=== PATIENT | male | born 1955 | race Native Hawaiian/Other Pacific Islander ===

== ENCOUNTER 2016-08-18 13:03 | Emergency (ER) | payer OTHER ==
[~2016-08-18] VITALS: Ht 165.1 cm; Wt 68.0 kg
[2016-08-18 14:50] LABS: PLATELET COUNT 279 K/uL (142-355)
[2016-08-18 14:58] LABS: POTASSIUM 3.3 mmol/L (3.6-5.2); SODIUM 138 mmol/L (136-145)
[2016-08-18 15:33] VITALS: BP 126/71; TEMP 98.2
== END 2016-08-18 15:46 | disposition home or self-care (01) ==
LOC: ED 13:03
PROVIDERS: Family Medicine
DX: S06.0X9A Concussion with loss of consciousness of unspecified duration, initial encounter (principal); S00.83XA Contusion of other part of head, initial encounter; R56.9 Unspecified convulsions; S01.552A Open bite of oral cavity, initial encounter; W22.09XA Striking against other stationary object, initial encounter; Y93.55 Activity, bike riding; Y92.098 Other place in other non-institutional residence as the place of occurrence of the external cause
CPT/HCPCS: 80053; 80307; 80320; 81000; 85027; 90715; 99283; G0479

== ENCOUNTER → 2017-01-19 20:04 | Outpatient (CLI) | payer OTHER | END | disposition short-term general hospital (02) | LOC: AMB 20:04 | DX: S01.112A Laceration without foreign body of left eyelid and periocular area, initial encounter (principal); S60.511A Abrasion of right hand, initial encounter; V19.88XA Pedal cyclist (driver) (passenger) injured in other specified transport accidents, initial encounter; Y92.414 Local residential or business street as the place of occurrence of the external cause | CPT/HCPCS: A0425; A0427 ==

== ENCOUNTER 2017-01-19 20:17 | Emergency (ER) | payer OTHER ==
[~2017-01-19] VITALS: Ht 175.3 cm; Wt 65.8 kg
[2017-01-19 21:45] VITALS: BP 142/93; TEMP 98.3
== END 2017-01-19 22:00 | disposition home or self-care (01) ==
LOC: ED 20:17
PROC: 0HQ1XZZ Repair Face Skin, External Approach (ICD-10-PCS; principal; 2017-01-19)
DX: S80.01XA Contusion of right knee, initial encounter (principal); S40.012A Contusion of left shoulder, initial encounter; S01.112A Laceration without foreign body of left eyelid and periocular area, initial encounter; S60.311A Abrasion of right thumb, initial encounter; F10.10 Alcohol abuse, uncomplicated; V19.3XXA Pedal cyclist (driver) (passenger) injured in unspecified nontraffic accident, initial encounter; Y93.55 Activity, bike riding; Y92.488 Other paved roadways as the place of occurrence of the external cause
CPT/HCPCS: 99283

== ENCOUNTER 2017-05-09 11:55 | Emergency (ER) | payer OTHER ==
[~2017-05-09] VITALS: Ht 167.6 cm; Wt 63.5 kg
[2017-05-09 12:44] VITALS: BP 130/60; TEMP 98.4
== END 2017-05-09 12:51 | disposition home or self-care (01) ==
LOC: ED 11:55
DX: J06.9 Acute upper respiratory infection, unspecified (principal); B34.9 Viral infection, unspecified
CPT/HCPCS: 99282

== ENCOUNTER 2017-10-14 14:24 | Outpatient (CLI) | payer OTHER | END 2017-10-14 14:31 | disposition short-term general hospital (02) | LOC: AMB 14:24 | DX: S00.12XA Contusion of left eyelid and periocular area, initial encounter (principal); V19.3XXA Pedal cyclist (driver) (passenger) injured in unspecified nontraffic accident, initial encounter; Y93.55 Activity, bike riding; Y92.89 Other specified places as the place of occurrence of the external cause; F10.129 Alcohol abuse with intoxication, unspecified | CPT/HCPCS: A0425; A0427 ==

== ENCOUNTER 2017-10-14 14:40 | Observation (INO) | payer OTHER ==
[~2017-10-14] VITALS: Ht 167.6 cm; Wt 62.4 kg
[2017-10-14 14:35] VITALS: BP 124/75; TEMP 98.1
[2017-10-14 15:00] VITALS: BP 111/58
[2017-10-14 15:08] LABS: PLATELET COUNT 286 K/uL (142-355)
[2017-10-14 15:18] LABS: POTASSIUM 3.8 mmol/L (3.6-5.2)
[2017-10-14 16:00] VITALS: BP 100/57
[2017-10-14 17:54] VITALS: BP 109/54; TEMP 97.8; Ht 167.6 cm; Wt 62.4 kg
[2017-10-14 20:00] VITALS: BP 93/58; TEMP 98.3
[2017-10-15] VITALS: BP 100/56; TEMP 98.4
[2017-10-15 03:56] VITALS: BP 108/64; TEMP 98.7
[2017-10-15 08:03] VITALS: BP 103/59; TEMP 98.6
== END 2017-10-15 11:00 | disposition home or self-care (01) ==
LOC: ED 14:40 → MED/SURG 16:10
DX: S01.112A Laceration without foreign body of left eyelid and periocular area, initial encounter (principal); V19.3XXA Pedal cyclist (driver) (passenger) injured in unspecified nontraffic accident, initial encounter; Y93.89 Activity, other specified; Y92.89 Other specified places as the place of occurrence of the external cause; S00.81XA Abrasion of other part of head, initial encounter; G40.802 Other epilepsy, not intractable, without status epilepticus; F10.129 Alcohol abuse with intoxication, unspecified; Y90.8 Blood alcohol level of 240 mg/100 ml or more
CPT/HCPCS: 36415; 80053; 80307; 80320; 81000; 82150; 83690; 84484; 85027; 93005; 96360; 96366; 96367; 96372; 96374; 99220; 99284; G0378; J1165; J1650; J3411; J3490; J7120

== ENCOUNTER 2017-11-18 20:11 | Outpatient (CLI) | payer OTHER | END 2017-11-18 20:16 | disposition short-term general hospital (02) | LOC: AMB 20:11 | DX: F10.129 Alcohol abuse with intoxication, unspecified (principal) | CPT/HCPCS: A0425; A0427 ==

== ENCOUNTER 2017-11-18 20:23 | Emergency (ER) | payer OTHER ==
[~2017-11-18] VITALS: Ht 167.6 cm; Wt 62.1 kg
[2017-11-18 20:56] LABS: PLATELET COUNT 297 K/uL (142-355)
[2017-11-18 21:06] LABS: POTASSIUM 3.7 mmol/L (3.6-5.2)
[2017-11-18 22:46] VITALS: BP 118/68; TEMP 98.1
== END 2017-11-18 22:48 | disposition home or self-care (01) ==
LOC: ED 20:23
DX: F10.10 Alcohol abuse, uncomplicated (principal); J32.2 Chronic ethmoidal sinusitis; J44.9 Chronic obstructive pulmonary disease, unspecified
CPT/HCPCS: 80053; 80307; 80320; 81000; 85027; 96360; 99284

== ENCOUNTER 2017-11-27 19:40 | Outpatient (CLI) | payer OTHER ==
[2017-11-27] MEDS ORDERED: PHENYTOIN EX100 MG PO (20:20)
[2017-11-27] MEDS ORDERED: TEMA30CA18 PO (20:20)
[2017-11-27] MEDS ORDERED: TEGRETOL-XR100 MG PO (20:21)
[2017-11-27] MEDS ORDERED: REMERON30 MG PO (20:21)
== END 2017-11-27 20:08 | disposition short-term general hospital (02) ==
LOC: AMB 19:40
DX: S61.411A Laceration without foreign body of right hand, initial encounter (principal); W22.8XXA Striking against or struck by other objects, initial encounter; Y92.89 Other specified places as the place of occurrence of the external cause
CPT/HCPCS: A0425; A0427

== ENCOUNTER 2017-11-27 20:13 | Emergency (ER) | payer OTHER ==
[~2017-11-27] VITALS: Ht 167.6 cm; Wt 54.4 kg
[2017-11-27] MEDS ORDERED: TEMA30CA18 PO (20:20)
[2017-11-27] MEDS ORDERED: PHENYTOIN EX100 MG PO (20:20)
[2017-11-27] MEDS ORDERED: TEGRETOL-XR100 MG PO (20:21)
[2017-11-27] MEDS ORDERED: REMERON30 MG PO (20:21)
[2017-11-27 22:16] VITALS: BP 124/72; TEMP 98.8
== END 2017-11-27 22:17 | disposition home or self-care (01) ==
LOC: ED 20:13
PROC: 0HQFXZZ Repair Right Hand Skin, External Approach (ICD-10-PCS; principal; 2017-11-27)
DX: S61.411A Laceration without foreign body of right hand, initial encounter (principal); W18.30XA Fall on same level, unspecified, initial encounter; Y92.89 Other specified places as the place of occurrence of the external cause
CPT/HCPCS: 99283

== ENCOUNTER 2018-03-27 14:53 | Emergency (ER) | payer OTHER ==
[~2018-03-27] VITALS: Ht 167.6 cm; Wt 54.4 kg
[~2018-03-27 14:53] MED LIST: PHENYTOIN EX100 MG PO; REMERON30 MG PO; TEGRETOL-XR100 MG PO; TEMA30CA18 PO
[2018-03-27 15:59] LABS: PLATELET COUNT 400 K/uL (142-355)
[2018-03-27 16:05] LABS: POTASSIUM 3.8 mmol/L (3.6-5.2)
[2018-03-27 16:50] VITALS: BP 149/75; TEMP 98.1
== END 2018-03-27 16:50 | disposition home or self-care (01) ==
LOC: ED 14:53
DX: K40.90 Unilateral inguinal hernia, without obstruction or gangrene, not specified as recurrent (principal)
CPT/HCPCS: 36415; 80053; 81000; 85027; 99283

== ENCOUNTER 2018-04-22 07:34 | Day surgery (SDC) | payer OTHER ==
[~2018-04-22] VITALS: Ht 30.5 cm; Wt 0.5 kg
[2018-04-22 08:34] LABS: PLATELET COUNT 230 K/uL (142-355)
[2018-04-22 08:47] LABS: POTASSIUM 3.9 mmol/L (3.6-5.2)
== END 2018-04-22 14:32 | disposition home or self-care (01) ==
LOC: OR 07:34
PROVIDERS: Student in an Organized Health Care Education/Training Program
PROC: 0YU50JZ Supplement Right Inguinal Region with Synthetic Substitute, Open Approach (ICD-10-PCS; principal; 2018-04-22)
DX: K40.90 Unilateral inguinal hernia, without obstruction or gangrene, not specified as recurrent (principal)
CPT/HCPCS: 80053; 82550; 84484; 85027; 93005; C1729; C1781; J0132; J0330; J0461; J0690; J1100; J2001; J2250; J2405; J2710; J2765; J3010; J3490

== ENCOUNTER 2018-05-06 12:47 | Emergency (ER) | payer OTHER ==
[~2018-05-06] VITALS: Ht 182.9 cm; Wt 513.5 kg
[2018-05-06 14:55] VITALS: BP 153/89; TEMP 97.8
== END 2018-05-06 14:55 | disposition home or self-care (01) ==
LOC: ED 12:47
DX: R59.0 Localized enlarged lymph nodes (principal); Z98.890 Other specified postprocedural states
CPT/HCPCS: 99281

== ENCOUNTER 2018-07-09 18:25 | Outpatient (CLI) | payer OTHER | END 2018-07-09 18:29 | disposition short-term general hospital (02) | LOC: AMB 18:25 | DX: R06.02 Shortness of breath (principal); G40.89 Other seizures; S01.81XA Laceration without foreign body of other part of head, initial encounter; W18.39XA Other fall on same level, initial encounter; Y92.89 Other specified places as the place of occurrence of the external cause | CPT/HCPCS: A0425; A0427 ==

== ENCOUNTER 2018-07-11 18:35 | Emergency (ER) | payer OTHER ==
[~2018-07-11] VITALS: Ht 182.9 cm; Wt 72.6 kg
[2018-07-11 19:36] LABS: PLATELET COUNT 360 K/uL (142-355)
[2018-07-11 19:48] LABS: POTASSIUM 3.3 mmol/L (3.6-5.2)
[2018-07-11 21:10] VITALS: BP 117/55; TEMP 98.1
== END 2018-07-11 20:55 | disposition home or self-care (01) ==
LOC: ED 18:35
PROVIDERS: Emergency Medicine
DX: S00.81XA Abrasion of other part of head, initial encounter (principal); R56.9 Unspecified convulsions; W18.39XA Other fall on same level, initial encounter; Y92.89 Other specified places as the place of occurrence of the external cause
CPT/HCPCS: 36415; 80053; 80320; 85027; 96360; 99284

== ENCOUNTER 2018-10-01 17:12 | Outpatient (CLI) | payer OTHER ==
[2018-10-02] MEDS ORDERED: TEGRETOL-XR100 MG PO (14:13)
[2018-10-02] MEDS ORDERED: PHENYTOIN EX100 MG PO (14:15)
[2018-10-02] MEDS ORDERED: REMERON30 MG PO (14:16)
== END 2018-10-01 17:17 | disposition short-term general hospital (02) ==
LOC: AMB 17:12
DX: T67.5XXA Heat exhaustion, unspecified, initial encounter (principal)
CPT/HCPCS: A0425; A0427

== ENCOUNTER 2019-01-14 10:17 | Emergency (ER) | payer OTHER ==
[~2019-01-14] VITALS: Ht 167.6 cm; Wt 61.7 kg
[2019-01-14 10:23] VITALS: TEMP 97.8
[2019-01-14 11:46] VITALS: BP 128/69
== END 2019-01-14 11:46 | disposition home or self-care (01) ==
LOC: ED 10:17
DX: M77.11 Lateral epicondylitis, right elbow (principal); X58.XXXA Exposure to other specified factors, initial encounter; Y92.89 Other specified places as the place of occurrence of the external cause
CPT/HCPCS: 99282

== ENCOUNTER 2019-02-18 21:31 | Outpatient (CLI) | payer OTHER | END 2019-02-18 21:36 | disposition short-term general hospital (02) | LOC: AMB 21:31 | DX: S01.119A Laceration without foreign body of unspecified eyelid and periocular area, initial encounter (principal); W18.39XA Other fall on same level, initial encounter; Y92.89 Other specified places as the place of occurrence of the external cause | CPT/HCPCS: A0425; A0429 ==

== ENCOUNTER 2019-02-18 21:40 | Observation (INO) | payer OTHER ==
[~2019-02-18] VITALS: Ht 167.6 cm; Wt 60.0 kg
[2019-02-18 21:40] VITALS: BP 140/77; TEMP 97.3
[2019-02-18 22:01] LABS: PLATELET COUNT 264 K/uL (142-355)
[2019-02-18 22:32] LABS: POTASSIUM 3.8 mmol/L (3.6-5.2)
[2019-02-19 00:19] VITALS: BP 123/67; TEMP 98.2; Ht 167.6 cm; Wt 60.0 kg
[2019-02-19 04:00] VITALS: BP 100/40; BP 114/70; TEMP 97.9
[2019-02-19 08:00] VITALS: BP 126/58; TEMP 97.9
== END 2019-02-19 12:25 | disposition home or self-care (01) ==
LOC: ED 21:40 → MED/SURG 22:52
PROVIDERS: Emergency Medicine; ADMIT Internal Medicine
DX: F10.129 Alcohol abuse with intoxication, unspecified (principal); Y90.7 Blood alcohol level of 200-239 mg/100 ml; I25.10 Atherosclerotic heart disease of native coronary artery without angina pectoris; J44.9 Chronic obstructive pulmonary disease, unspecified; G40.802 Other epilepsy, not intractable, without status epilepticus; S00.212A Abrasion of left eyelid and periocular area, initial encounter; W18.39XA Other fall on same level, initial encounter; Y92.89 Other specified places as the place of occurrence of the external cause
CPT/HCPCS: 36415; 80053; 80320; 85027; 96365; 99220; 99284; G0378; J3411; J3475; J3490

== ENCOUNTER 2019-05-18 16:51 | Outpatient (CLI) | payer OTHER | END 2019-05-18 16:56 | disposition short-term general hospital (02) | LOC: AMB 16:51 | DX: R07.89 Other chest pain (principal) | CPT/HCPCS: A0425; A0427 ==

== ENCOUNTER 2019-05-18 17:07 | Emergency (ER) | payer OTHER ==
[~2019-05-18] VITALS: Ht 167.6 cm; Wt 59.9 kg
[2019-05-18 17:07] VITALS: BP 115/79; TEMP 98.4
[2019-05-18 17:23] LABS: PLATELET COUNT 289 K/uL (142-355)
[2019-05-18 17:28] LABS: POTASSIUM 3.8 mmol/L (3.6-5.2); SODIUM 139 mmol/L (136-145)
[2019-05-18 17:38] LABS: PARTIAL THROMBOPLASTIN TIME 25.6 SECONDS (24.5-33.6)
== END 2019-05-18 19:09 | disposition home or self-care (01) ==
LOC: ED 17:07
PROVIDERS: Hospitalist
DX: R07.89 Other chest pain (principal); K21.9 Gastro-esophageal reflux disease without esophagitis; R56.9 Unspecified convulsions
CPT/HCPCS: 80053; 80156; 80185; 80320; 82550; 83880; 84484; 85027; 85610; 85730; 93005; 99284

== ENCOUNTER 2019-09-14 17:00 | Emergency (ER) | payer OTHER ==
[~2019-09-14] VITALS: Ht 167.6 cm; Wt 59.9 kg
[2019-09-14 17:38] LABS: PLATELET COUNT 276 K/uL (142-355)
[2019-09-14 17:44] LABS: POTASSIUM 3.8 mmol/L (3.6-5.2); SODIUM 139 mmol/L (136-145)
[2019-09-14 18:48] VITALS: BP 106/59; TEMP 98.9
== END 2019-09-14 18:48 | disposition home or self-care (01) ==
LOC: ED 17:03
PROVIDERS: Family Medicine
DX: F10.129 Alcohol abuse with intoxication, unspecified (principal)
CPT/HCPCS: 80053; 80320; 82550; 82553; 84484; 85027; 93005; 96360; 99284

== ENCOUNTER 2019-10-09 17:29 | Emergency (ER) | payer OTHER ==
[~2019-10-09] VITALS: Ht 167.6 cm; Wt 59.9 kg
[2019-10-09 18:31] LABS: PLATELET COUNT 268 K/uL (142-355)
[2019-10-09 18:37] LABS: POTASSIUM 3.5 mmol/L (3.6-5.2); SODIUM 141 mmol/L (136-145)
[2019-10-09 20:10] VITALS: BP 106/77; TEMP 97.7
== END 2019-10-09 20:40 | disposition home or self-care (01) ==
LOC: ED 17:44
PROVIDERS: Family Medicine
DX: F10.129 Alcohol abuse with intoxication, unspecified (principal); R07.89 Other chest pain
CPT/HCPCS: 80053; 80307; 80320; 81000; 82550; 82553; 84484; 85027; 93005; 99283

== ENCOUNTER 2020-01-26 13:37 | Emergency (ER) | payer OTHER ==
[~2020-01-26] VITALS: Ht 167.6 cm; Wt 59.9 kg
[2020-01-26 13:44] VITALS: BP 116/71; TEMP 98.5
== END 2020-01-26 16:15 | disposition home or self-care (01) ==
LOC: ED 13:37
DX: M47.896 Other spondylosis, lumbar region (principal); M48.56XA Collapsed vertebra, not elsewhere classified, lumbar region, initial encounter for fracture
CPT/HCPCS: 96372; 99283; J1885

== ENCOUNTER 2020-06-12 15:01 | Observation (INO) | payer OTHER ==
[2020-06-12] VITALS (8 sets, daily range): BP systolic 106–135; BP diastolic 54–83; TEMP 97.4–99.1; Ht 167.6 cm; Wt 62.7 kg
[~2020-06-12] VITALS: Ht 167.6 cm; Wt 62.7 kg
[2020-06-12 15:23] LABS: PLATELET COUNT 226 K/uL (142-355)
[2020-06-12 15:37] LABS: POTASSIUM 4.4 mmol/L (3.6-5.2); SODIUM 141 mmol/L (136-145)
[2020-06-12 15:47] LABS: PARTIAL THROMBOPLASTIN TIME 24.2 SECONDS (24.5-33.6)
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
--- NOTE | 2020-06-12 19:06 | NUR ---
DR ESPINOZA INFORMED OF HEMATOMA TO BACK OF RT HEAD.
[2020-06-13] VITALS (7 sets, daily range): BP systolic 96–114; BP diastolic 31–65; TEMP 97.8–98.4
--- NOTE | 2020-06-14 01:13 | NUR ---
NEW TELEMTRY ELECTRODES CHANGED AND PATIENT WAS GIVEN A SNACK. PATIENT DENIES ANY CHEST PAIN OR PRESSURE. PATIENT DENIES ANY NAUSEA OR DISCOMFORT.
[2020-06-14 04:00] VITALS: BP 107/55; TEMP 97.9
[2020-06-14 08:00] VITALS: BP 111/54; TEMP 98.4
[2020-06-14 12:00] VITALS: BP 119/71; TEMP 98.4
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
[2020-06-14 16:00] VITALS: BP 107/66; TEMP 98.2
--- NOTE | 2020-06-14 17:11 | NUR ---
PT LAYING IN BED, A/O X 3 IN NAD AT THIS TIME, STATES HE IS GOING TO THE [facility] FOR A MONTH.
[2020-06-14 20:10] VITALS: BP 130/62; TEMP 98
--- NOTE | 2020-06-14 20:20 | NUR ---
ENTERED PATIENT'S ROOM AT THIS TIME. PATIENT SITTING UP IN BED WATCHING TV. RESPIRATIONS ARE EVEN AND UNLABORED. NO CONCERN OR COMPLAINTS VOICED. 20G TO LEFT FA PATENT AND INTACT. NO ERYTHEMA OR SWELLING NOTED. IV SALINE LOCKED AT THIS TIME. PATIENT ALERT AND ORIENTED. ASSESSMENT PERFORMED AT THIS TIME. BED LOCKED AND IN LOWEST POSITION. CALL LIGHT WITHIN EASY REACH.
[2020-06-15 00:07] VITALS: BP 122/66; TEMP 98.1
[2020-06-15 04:02] VITALS: BP 109/65; TEMP 97.6
--- NOTE | 2020-06-15 06:10 | NUR ---
PATIENT RESTING QUIETLY WITH EYES CLOSED AT THIS TIME. RESPIRATIONS EVEN AND UNLABORED. 20G TO LEFT FA FLUSHED WITH NS. DENIES TENDERNESS OR SWELLING. NAD NOTED. NO OTHER CONCERNS OR COMPLAINTS VOICED AT THIS TIME. BED LOCKED AND IN LOWEST POSITION. CALL LIGHT WITHIN EASY REACH.
[2020-06-15 08:00] VITALS: BP 123/68; TEMP 97
[2020-06-15 08:28] LABS: PLATELET COUNT 210 K/uL (142-355)
[2020-06-15 08:41] LABS: POTASSIUM 3.9 mmol/L (3.6-5.2)
[2020-06-15] MEDS ORDERED: LEVE500T5 PO (11:26)
[2020-06-15] MEDS ORDERED: PANTOPRAZOLE 40MG TA PO (11:26)
[2020-06-15 12:00] VITALS: BP 102/45; TEMP 98.2
--- NOTE | 2020-06-15 13:47 | NUR ---
Called and gave report on patient to [facility] nurse [place]. Patient has shower, oral care, and shaved. Dulcolox, 10mg, po gne time dose given for complant of constipation. No acute distress noted.
--- NOTE | 2020-06-15 15:00 | NUR ---
Patient was discharged and transferred via w/c to the [facility] at the [facility]. Personal beglonging were put in a bag and carried with him. No acute distress noted.
== END 2020-06-15 13:30 ==
LOC: ED 15:01 → MED/SURG 16:30
PROVIDERS: Hospitalist; ADMIT Internal Medicine; ATTEND Internal Medicine
DX: S00.03XA Contusion of scalp, initial encounter (principal); W18.39XA Other fall on same level, initial encounter; Y92.89 Other specified places as the place of occurrence of the external cause; J44.9 Chronic obstructive pulmonary disease, unspecified; I25.10 Atherosclerotic heart disease of native coronary artery without angina pectoris; Z87.820 Personal history of traumatic brain injury; G40.802 Other epilepsy, not intractable, without status epilepticus; R07.89 Other chest pain; F10.10 Alcohol abuse, uncomplicated; Z91.14 Patient's other noncompliance with medication regimen; R00.1 Bradycardia, unspecified
CPT/HCPCS: 36415; 80053; 80156; 80185; 80307; 80320; 81000; 82550; 83880; 84443; 84484; 85027; 85610; 85730; 87635; 93005; 96365; 96366; 96372; 96375; 99220; 99284; G0378; J1650; J2405; J3411; J3475; J3490; U0003

== ENCOUNTER 2020-06-15 14:12 | Inpatient (IN) | payer OTHER ==
[~2020-06-15 14:12] MED LIST changes: +LEVE500T5 PO; +PANTOPRAZOLE 40MG TA PO
== END 2020-07-07 12:23 | disposition still patient (30) ==
LOC: PAVB 14:12 → PAVC 06-22 15:03
PROVIDERS: ADMIT Internal Medicine; ATTEND Internal Medicine

== ENCOUNTER 2020-06-16 05:44 | Outpatient (CLI) | payer OTHER ==
[2020-06-16 08:36] LABS: PLATELET COUNT 234 K/uL (142-355)
[2020-06-16 09:42] LABS: POTASSIUM 4.5 mmol/L (3.6-5.2)
== END 2020-06-16 21:41 | disposition home or self-care (01) ==
LOC: LAB 05:44
PROVIDERS: ATTEND Internal Medicine
DX: Z00.00 Encounter for general adult medical examination without abnormal findings (principal); Z79.899 Other long term (current) drug therapy
CPT/HCPCS: 80053; 80061; 82306; 82607; 82728; 83540; 84153; 84443; 85027; 87081

== ENCOUNTER 2020-08-01 15:49 | Outpatient (CLI) | payer OTHER ==
[2020-08-01 16:02] LABS: PLATELET COUNT 203 K/uL (142-355)
[2020-08-01 16:14] LABS: POTASSIUM 4.2 mmol/L (3.6-5.2)
== END 2020-08-01 22:31 | disposition home or self-care (01) ==
LOC: LAB 15:49
PROVIDERS: ATTEND Internal Medicine
DX: R82.998 Other abnormal findings in urine (principal); R68.89 Other general symptoms and signs; N39.0 Urinary tract infection, site not specified; Z11.52 Encounter for screening for COVID-19
CPT/HCPCS: 80053; 81000; 85027; 87635; U0003

== ENCOUNTER 2020-08-01 16:49 | Emergency (ER) | payer OTHER ==
[~2020-08-01] VITALS: Ht 167.6 cm; Wt 62.6 kg
[2020-08-01 20:47] VITALS: BP 141/85; TEMP 98
== END 2020-08-01 20:47 | disposition home or self-care (01) ==
LOC: ED 16:49
DX: F32.9 Major depressive disorder, single episode, unspecified (principal)
CPT/HCPCS: 93005; 99285

== ENCOUNTER 2020-10-24 10:38 | Emergency (ER) | payer OTHER ==
[~2020-10-24] VITALS: Ht 167.6 cm; Wt 62.6 kg
[2020-10-24 10:45] VITALS: BP 121/68; TEMP 97.7
[2020-10-24 11:52] LABS: PLATELET COUNT 220 K/uL (142-355)
[2020-10-24 11:55] LABS: POTASSIUM 4.4 mmol/L (3.6-5.2)
== END 2020-10-24 12:44 | disposition home or self-care (01) ==
LOC: ED 10:38
PROVIDERS: Emergency Medicine
DX: R56.9 Unspecified convulsions (principal); F41.8 Other specified anxiety disorders; I10 Essential (primary) hypertension; Z87.898 Personal history of other specified conditions
CPT/HCPCS: 80053; 80320; 85027; 99283

== ENCOUNTER 2020-10-25 14:00 | Observation (INO) | payer OTHER ==
[~2020-10-25] VITALS: Ht 167.6 cm; Wt 70.4 kg
[2020-10-25 14:04] VITALS: BP 130/67; TEMP 98.9
[2020-10-25 16:08] LABS: PLATELET COUNT 243 K/uL (142-355)
[2020-10-25 16:15] LABS: POTASSIUM 3.8 mmol/L (3.6-5.2); SODIUM 143 mmol/L (136-145)
--- NOTE | 2020-10-25 21:35 | NUR ---
PATIENT ADMITTED TO ROOM# 1107 VIA WHEELCHAIR FROM ER, PATIENT IS ALERT AND ORIENTED BUT DOES HAVA A DIAGNOSIS OF MILD MENTAL RETARDATION. PATIENT CAME IN TO ER WANTING TO BE PLACED BACK INTO RETIREMENT BECAUSE HE IS HOMELESS AND UNABLE TO CARE FOR HIMSELF. ER REPORT STATES THAT PATIENT WAS IN THE [facility] BUT LEFT AMA IN JULY OF 2020 AND PATIENT STATES "BECAUSE THEY MADE HIM MAD". PATIENTS HOME MED LIST INCLUDES DILANTIN, KEPPRA, TEGRETOL AND REMERON BUT THE PATIENT STATES THE LAST TIME HE HAD ANY MEDS WAS IN JULY WHEN HE WAS AT [facility]. HE STATES "I CANT AFFORD THEM, HAVE NO MONEY AND I LIVE IN THE [facility]!". PATIENT ORIENTED TO ROOM AND CALL SYSTEM AND VERBALIZES UNDERSTANDING AND DENIES ANY QUESTIONS, COMPLAINTS OR REQUEST AT THIS TIME.
[2020-10-25 23:06] VITALS: BP 133/76; TEMP 98.1; Ht 167.6 cm; Wt 70.4 kg
[2020-10-26 00:13] VITALS: BP 113/55; TEMP 98.1
[2020-10-26 04:00] VITALS: BP 111/57; TEMP 98.2
[2020-10-26 07:53] VITALS: BP 137/70; TEMP 97.9
[2020-10-26 12:12] VITALS: BP 126/67; TEMP 98.8
--- NOTE | 2020-10-26 12:15 | NUR ---
PROVIDED PATIENT WITH TOILETRIES AND BATH TOWELS/BATH CLOTHES FOR A SHOWER. PATIENT AMBULATED TO SHOWER, GAIT IS STEADY. PATIENT DENIES ANY PAIN, NEEDS OR C/O AT THIS TIME.
--- NOTE | 2020-10-26 12:21 | NUR ---
SHOWER CHAIR PLACED IN SHOWER FOR PATIENT'S SECURITY.
--- NOTE | 2020-10-26 12:50 | NUR ---
PATIENT TOLERATED SHOWER WELL AND DENIES ANY DIZZINESS OR SHORTNESS OF BREATH. FLUIDS RESTARTED AT THIS TIME.
--- NOTE | 2020-10-26 13:00 | NUR ---
SPOKE TO MD REGARDING PT HOME MEDS MEDICATIONS NEW ORDER GIVEN TO CONTINUE KEPPRA ONLY AT THIS TIME. PT DENIES ANY SEIZURES SINCE D/C FROM [facility] AND STATES HE HAS NOT TAKEN ANY OF HIS HOME MEDICATIONS SINCE JULY WHEN HER LEFT [facility].
[2020-10-26 16:27] VITALS: BP 107/55; TEMP 98.3
[2020-10-26 20:00] VITALS: BP 117/54; TEMP 98.6
[2020-10-27] VITALS: BP 129/73; TEMP 98.4
--- NOTE | 2020-10-27 01:13 | NUR ---
PT SLEEPING NO DISTRESS NOTED.
[2020-10-27 04:00] VITALS: BP 140/60; TEMP 98.2
--- NOTE | 2020-10-27 05:21 | NUR ---
PT RESTING QUIETLY. NO DISTRESS NOTED.
[2020-10-27 07:40] LABS: PLATELET COUNT 209 K/uL (142-355)
[2020-10-27 08:00] VITALS: BP 122/63; TEMP 98.1
[2020-10-27 08:28] LABS: POTASSIUM 4.2 mmol/L (3.6-5.2)
--- NOTE | 2020-10-27 10:40 | NUR ---
REPORT GIVEN TO NURSE FRANKLIN @ [facility], RECEIVING NURSE DENIES ANY QUESTIONS OR C/O AT THIS TIME.
--- NOTE | 2020-10-27 10:55 | NUR ---
PROVIDED PATIENT WITH D/C INSTRUCTIONS, PT V/O UNDERSTANDING. PATIENT D/C'D FROM FACILITY AND TRANSFERRED TO [facility]. PT DENIES ANY PAIN, NEEDS OR C/O AT THIS TIME. NAD NOTED WITH PATIENT AT THIS TIME.
== END 2020-10-27 10:55 ==
LOC: ED 14:00 → MED/SURG 20:45
PROVIDERS: ADMIT Family Medicine; ATTEND Internal Medicine
DX: E86.0 Dehydration (principal); R53.1 Weakness; R62.7 Adult failure to thrive; I25.10 Atherosclerotic heart disease of native coronary artery without angina pectoris; J44.9 Chronic obstructive pulmonary disease, unspecified; Z87.820 Personal history of traumatic brain injury; G40.802 Other epilepsy, not intractable, without status epilepticus
CPT/HCPCS: 36415; 80053; 80320; 84484; 85027; 87635; 93005; 96360; 96361; 96374; 96375; 99220; 99283; 99284; G0378; J3490; U0003

== ENCOUNTER 2020-10-27 11:30 | Inpatient (IN) | payer OTHER | END 2020-11-06 08:00 | disposition still patient (30) | LOC: PAVC 11:30 | PROVIDERS: ADMIT Internal Medicine; ATTEND Internal Medicine ==

== ENCOUNTER 2020-11-01 12:46 | Outpatient (CLI) | payer OTHER | END 2020-11-01 20:38 | disposition home or self-care (01) | LOC: RAD 12:46 | PROVIDERS: ATTEND Internal Medicine | DX: M25.512 Pain in left shoulder (principal); M54.2 Cervicalgia; M25.561 Pain in right knee ==

== ENCOUNTER 2020-11-06 09:00 | Inpatient (IN) | payer OTHER | END 2020-11-10 17:15 | disposition home or self-care (01) | LOC: PAVC 09:00 | PROVIDERS: ADMIT Internal Medicine; ATTEND Internal Medicine ==

== ENCOUNTER 2021-03-06 16:23 | Emergency (ER) | payer OTHER ==
[~2021-03-06] VITALS: Ht 167.6 cm; Wt 70.3 kg
[2021-03-06 16:23] VITALS: BP 126/75; TEMP 98
[2021-03-06 16:53] LABS: PLATELET COUNT 205 K/uL (142-355)
[2021-03-06 17:02] LABS: POTASSIUM 3.6 mmol/L (3.6-5.2)
== END 2021-03-06 19:07 | disposition home or self-care (01) ==
LOC: ED 16:23
PROVIDERS: Emergency Medicine Emergency Medical Services
DX: S00.83XA Contusion of other part of head, initial encounter (principal); W17.89XA Other fall from one level to another, initial encounter; Y93.55 Activity, bike riding; Y92.89 Other specified places as the place of occurrence of the external cause
CPT/HCPCS: 80053; 80320; 85027; 96360; 96375; 99284; J2270

== ENCOUNTER 2021-05-21 18:33 | Emergency (ER) | payer OTHER ==
[~2021-05-21] VITALS: Ht 167.6 cm; Wt 70.3 kg
[2021-05-21 18:50] VITALS: BP 123/62; TEMP 98.3
== END 2021-05-21 20:18 | disposition home or self-care (01) ==
LOC: ED 18:33
DX: K21.9 Gastro-esophageal reflux disease without esophagitis (principal)
CPT/HCPCS: 99283

== ENCOUNTER 2021-06-08 14:34 | Emergency (ER) | payer OTHER ==
[~2021-06-08] VITALS: Ht 167.6 cm; Wt 70.3 kg
[2021-06-08 14:34] VITALS: BP 155/91; TEMP 98.2
[2021-06-08 15:02] LABS: PLATELET COUNT 228 K/uL (142-355)
[2021-06-08 15:10] LABS: POTASSIUM 3.6 mmol/L (3.6-5.2)
== END 2021-06-08 16:39 | disposition home or self-care (01) ==
LOC: ED 14:34
PROVIDERS: Emergency Medicine
DX: F10.129 Alcohol abuse with intoxication, unspecified (principal); Y90.8 Blood alcohol level of 240 mg/100 ml or more; Z53.29 Procedure and treatment not carried out because of patient's decision for other reasons
CPT/HCPCS: 80053; 80320; 82150; 83690; 84484; 85027; 93005; 96365; 99284; J3411; J3475; J3490

== ENCOUNTER 2022-09-11 20:55 | Emergency (ER) | payer OTHER ==
[~2022-09-11] VITALS: Ht 195.6 cm; Wt 73.5 kg
[2022-09-11 21:16] LABS: PLATELET COUNT 241 K/uL (142-355)
[2022-09-11 21:27] LABS: POTASSIUM 3.8 mmol/L (3.6-5.2)
[2022-09-11 22:52] VITALS: BP 132/72; TEMP 98
[2022-09-12] MEDS ORDERED: ABILIFY MYCITE15 MG PO (09:12)
[2022-09-12] MEDS ORDERED: LIPITOR20 MG PO (09:13)
[2022-09-12] MEDS ORDERED: ASPIRIN/ENTERIC81 MG PO (09:13)
[2022-09-12] MEDS ORDERED: CELEXA20 MG PO (09:14)
[2022-09-12] MEDS ORDERED: KP FOLIC ACID1 MG PO (09:16)
[2022-09-12] MEDS ORDERED: MELATONIN5 M2 PO (09:18)
[2022-09-12] MEDS ORDERED: LEVE500T5 PO (09:19)
[2022-09-12] MEDS ORDERED: SENNOSIDES8.6 MG PO (09:23)
[2022-09-18] MEDS ORDERED: ATOR20TA2 PO (11:06)
[2022-09-18] MEDS ORDERED: CHOL100034 PO (11:06)
[2022-09-18] MEDS ORDERED: ARIPIPRAZOLE10 MG PO (11:06)
[2022-09-18] MEDS ORDERED: ASPI81TA4 PO (11:06)
[2022-09-18] MEDS ORDERED: FOLI1TAB26 PO (11:07)
[2022-09-18] MEDS ORDERED: DOCU100C10 PO (11:07)
[2022-09-18] MEDS ORDERED: LEVE500T5 PO (11:07)
[2022-09-18] MEDS ORDERED: ESCI10TA PO (11:07)
[2022-09-18] MEDS ORDERED: MELATONIN MAXIMU5 MG PO (11:08)
== END 2022-09-11 22:52 | disposition other institution (70) ==
LOC: ED 20:55
PROVIDERS: Family Medicine
DX: F20.9 Schizophrenia, unspecified (principal); Z02.79 Encounter for issue of other medical certificate
CPT/HCPCS: 36415; 80053; 85027; 87635; 93005; 99283; U0003

== ENCOUNTER 2022-11-22 21:20 | Emergency (ER) | payer OTHER ==
[~2022-11-22] VITALS: Ht 165.1 cm; Wt 81.2 kg
[~2022-11-22 21:20] MED LIST changes: +ABILIFY MYCITE15 MG PO; +ARIPIPRAZOLE10 MG PO; +ASPI81TA4 PO; +ASPIRIN/ENTERIC81 MG PO; +ATOR20TA2 PO; +CELEXA20 MG PO; +CHOL100034 PO; +DOCU100C10 PO; +ESCI10TA PO; +FOLI1TAB26 PO; +KP FOLIC ACID1 MG PO; +LIPITOR20 MG PO; +MELATONIN MAXIMU5 MG PO; +MELATONIN5 M2 PO; +SENNOSIDES8.6 MG PO
[2022-11-22 21:59] LABS: PLATELET COUNT 233 K/uL (142-355)
[2022-11-22 22:03] LABS: POTASSIUM 3.6 mmol/L (3.6-5.2)
[2022-11-22 22:43] VITALS: BP 135/85; TEMP 97.7
[2022-11-23] MEDS ORDERED: DOK100 M1 PO (06:32)
[2022-11-23] MEDS ORDERED: VITAMIN D1000 UNI1 PO (06:32)
[2022-11-23] MEDS ORDERED: ESCITALOPRAM5 MG PO (06:34)
[2022-11-23] MEDS ORDERED: NEOM0.1O OPTH (06:40)
[2022-11-23] MEDS ORDERED: ACET-206 PO (06:42)
[2022-11-29] MEDS ORDERED: Atorvastatin Calcium PO (09:23)
[2022-11-29] MEDS ORDERED: ENTERIC COATED325 MG PO (09:23)
[2022-11-29] MEDS ORDERED: [UNRECOGNIZED DRUG - OTHER] OPTH (09:23)
[2022-11-29] MEDS ORDERED: DOCU100C10 PO (09:24)
[2022-11-29] MEDS ORDERED: CHOL100034 PO (09:24)
[2022-11-29] MEDS ORDERED: FOLI1TAB26 PO (09:24)
[2022-11-29] MEDS ORDERED: ESCI10TA PO (09:24)
[2022-11-29] MEDS ORDERED: MELATONIN MAXIMU5 MG PO (09:24)
[2022-11-29] MEDS ORDERED: QUET25TA2 PO (09:25)
== END 2022-11-22 22:43 | disposition other institution (70) ==
LOC: ED 21:20
PROVIDERS: Family Medicine
DX: F20.9 Schizophrenia, unspecified (principal); R45.6 Violent behavior; R45.1 Restlessness and agitation; F33.9 Major depressive disorder, recurrent, unspecified; Z02.79 Encounter for issue of other medical certificate
CPT/HCPCS: 80053; 81002; 85027; 87635; 93005; 99283; U0003